=== PATIENT | female | born 1965 | race African-American/Black ===

== ENCOUNTER 2018-03-06 06:15 | Emergency (ER) | payer OTHER ==
[~2018-03-06] VITALS: Ht 165.1 cm; Wt 63.6 kg
[~2018-03-06 06:15] MED LIST: FOLI0.4T2 PO; LEVO25TA9 PO; METH2.5T6 PO
[2018-03-06 06:37] VITALS: BP 132/75
[2018-03-06] MEDS ORDERED: OMEP20 PO (06:44)
[2018-03-06] MEDS ORDERED: CITA-106 PO (06:44)
[2018-03-06] MEDS ORDERED: AMLO-511 PO (06:44)
[2018-03-06] MEDS ORDERED: HYDROCODONE/ACETAMINOPHEN 5-325 MG TABLET PO ONE (07:15)
[2018-03-06] MEDS ORDERED: METHOCARBAMOL 500 MG TABLET PO ONE (07:15)
== END 2018-03-06 07:52 | disposition home or self-care (01) ==
LOC: EMS 06:15
DX: S16.1XXA Strain of muscle, fascia and tendon at neck level, initial encounter (principal); I10 Essential (primary) hypertension; E03.9 Hypothyroidism, unspecified; K21.9 Gastro-esophageal reflux disease without esophagitis; X50.9XXA Other and unspecified overexertion or strenuous movements or postures, initial encounter; Y93.89 Activity, other specified; Y92.89 Other specified places as the place of occurrence of the external cause; Y99.8 Other external cause status
CPT/HCPCS: 99283